=== PATIENT | female | born 1990 | race Caucasian/White ===

== ENCOUNTER 2021-01-19 10:22 | Emergency (ER) | payer BC, SELFPAY ==
[2021-01-19 10:24] VITALS: BP 113/70; PULSE 100; RESP 18; TEMP 36.4; O2SAT 100
--- NOTE | 2021-01-19 11:06 | ED.NEUROSD ---
HPI - Neuro Symptoms/Deficit General Chief Complaint: Neuro Symptoms/Deficit Stated Complaint: R side of face numb Time Seen by Provider: 01/19/21 11:06 History of Present Illness HPI Narrative: Right sided facial numbness and weakness since this morning. Noticed facial asymmetry and had tooth paste running out of the corner of her mouth when she brushed her teeth this morning. She has some sensation in the right face, but it is significantly reduced compared to the left. No other weakness or numbness noted. No difficulties with speech or coordination. No problems with comprehension. She has had an earache on the right side for 2-3 days and was started on Augmentin yesterday. Related Data Allergies Allergy/AdvReac Type Severity Reaction Status Date / Time No Known Allergies Allergy Uncoded 06/08/19 11:00 Review of Systems Review of Systems: All systems reviewed & are unremarkable except as noted in HPI and below Constitutional: Constitutional: Denies chills and Denies fever(s) Eyes: Eyes: Denies no additional eye complaints and Denies change in vision ENT: Denies dizziness Cardiovascular: Cardiovascular: Denies chest pain Respiratory: Respiratory: Denies dyspnea Gastrointestinal: Gastrointestinal: Denies nausea and Denies vomiting Musculoskeletal: Musculoskeletal: Denies back pain Neurologic: Reports as per HPI Exam Const: General: healthy appearing, no acute distress and alert Nutritional Appearance: well nourished Orientation/consciousness: patient oriented x3 HENMT: Mouth: Yes moist mucous membranes Eyes: Pupils: Equal, round and reactive pupils present EOM: EOMs intact bilaterally Neck: Neck: normal visual inspection Resp: Effort & Inspection: normal respiratory effort Auscultation: clear to auscultation bilaterally Cardio: Rate: regular rate Rhythm: regular rhythm Skin: General skin exam: normal color Neuro: General: patient oriented x3, moves all extremities and no focal motor deficits Cognition (Neuro): normal cognition Speech: normal speech Gait exam (Neuro): Normal gait present Motor exam (neuro): 5/5 motor strength present throughout (extremities) Other: Right facial weakness including muscles of the forehead. Right eyelid is able to close completely. Mild tongue deviation. Extrem: General: normal to inspection Psych: Appearance: grossly normal Mental Status: mental status grossly normal Affect: normal affect Attitude: cooperative Thought content: Yes Normal thought content present Course Vital Signs Vital signs: Vital Signs Temperature 36.4 C L 01/19/21 10:24 Pulse Rate 100 06/08/21 10:24 Respiratory Rate 18 01/19/21 10:24 Blood Pressure 113/70 01/19/21 10:24 Pulse Oximetry 100 01/19/21 10:24 Temperature 36.4 C L 01/19/21 10:24 Pulse Rate 100 01/19/21 10:24 Respiratory Rate 18 01/19/21 10:24 Blood Pressure 113/70 01/19/21 10:24 Pulse Oximetry 100 01/19/21 10:24 MDM - Neuro Symptoms/Deficit MDM Narrative Medical decision making narrative: 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 I will start prednisone and acyclovir. Medical Records Attestation: I reviewed the patient's medical records. Discharge Plan Discharge Clinical Impression: Caballero's palsy Patient Disposition: Home, Self-Care Condition: Stable Instructions: Caballero Palsy (ED) Additional Instructions: Patch eye while sleeping if your are not able to close it completely. Prescriptions: New prednisone 20 mg tablet 60 mg PO DAILY 5 Days Qty: 15 RF: 0 acyclovir 800 mg tablet 800 mg PO Q4H 7 Days Qty: 42 RF: 0 Artificial Tears (cmc) 1 % drops 1 drp EACH EYE QID Qty: 15 RF: 0 Follow-up/Referrals: PHYSICIAN,HIM SPECIALIST [Primary Care Provider] - Ronal Erickson MD [Physician] -
[2021-01-19] MEDS: ACYCLOVIR 400 MG TABLET 800 MG PO (11:45)
[2021-01-19] MEDS: predniSONE 20 MG TABLET 60 MG PO (11:45)
== END 2021-01-19 11:47 | disposition home or self-care (01) ==
PROVIDERS: Emergency Provider Emergency Medicine
DX: G51.0 Bell's palsy (principal)
CPT/HCPCS: 99283; A9270; J7512

== ENCOUNTER 2021-07-16 14:21 | Emergency (ER) | payer BC, SELFPAY ==
--- NOTE | 2021-07-16 14:27 | ED.URI ---
HPI - URI/Sore Throat General Chief Complaint: Upper Respiratory Infection Stated Complaint: congestion/reid/cough Time Seen by Provider: 07/16/21 14:27 Source: patient and RN notes reviewed Mode of arrival: ambulatory Limitations: no limitations History of Present Illness HPI Narrative: Sherlyn 30-year-old female patient who ambulated into the [facility]. Patient states on 07/12/2021 she developed a cough sinus congestion. She stated on Monday she started having a fever of 102 at home. Increasing cough, sinus congestion body aches chest and back pain. 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 She has been off since Monday due to symptoms. MD elicited complaint: nasal congestion Related Data Allergies Allergy/AdvReac Type Severity Reaction Status Date / Time codeine Allergy Vomiting Verified 07/16/21 14:26 Review of Systems Review of Systems: CONSTITUTIONAL: Denies body aches, fever, chills, or sweats. EYES: Denies visual changes, redness, or discharge. ENT: Denies rhinorrhea,+ congestion, sore throat, or otalgia. CARDIOVASCULAR: Denies chest pain, palpitations, or edema. RESPIRATORY: + cough denies dyspnea. GASTROINTESTINAL: Denies abdominal pain, nausea, vomiting, or diarrhea. GENITOURINARY: Denies dysuria or hematuria. SKIN: Denies rash, itching, or wounds. MUSCULOSKELETAL: Denies back pain, joint pain, or myalgia. NEUROLOGIC: Denies headache, numbness, tingling, or weakness. PSYCH: Denies depression or anxiety. All systems reviewed & are unremarkable except as noted in HPI and below PMFSH Comments At time of signature, I have reviewed and agree with nursing past medical, surgical, social and family history unless otherwise noted. Please see nursing chart for further information. There is no relevant family history pertinent to the presenting complaint Exam Narrative: GENERAL: Well-appearing, well-nourished, and in no acute distress. HEAD: Normocephalic, atraumatic. EYES: EOMI. No redness or drainage. Conjunctivae normal. ENT: Mucous membranes pink and moist. Nasal membranes are erythematous with clear discharge. TMs normal bilaterally. Posterior pharynx is erythemic with mild edema no exudate .Uvula midline. NECK: Normal AROM. Supple. No lymphadenopathy. CHEST: No respiratory distress. Clear to auscultation; harsh cough noted. MUSCULOSKELETAL: No bony tenderness. EXTREMITIES: Normal range of motion. No edema. SKIN: Warm, dry, no rash. Capillary refill normal. Normal skin turgor. NEURO: No focal deficits. Alert and oriented x3. Gait steady. PSYCH: Normal affect. No signs of depression or anxiety. Course Vital Signs Vital signs: Reviewed MDM - URI/Sore Throat MDM Narrative Medical decision making narrative: COVID-19; patient's rapid COVID-19 test is positive. Patient has been symptomatic since 07/12/2021. Patient does have a past history of asthma. Patient will be treated with prednisone 50 mg x 7 days for the harsh cough. Patient will treat the symptoms with [id number] cold medicine. Patient was educated on going straight to the emergency room for any severe shortness of breath or any other issues. Patient was notified that [facility] will be contacting her regarding her quarantine. Differential Diagnosis Differential diagnosis: Likely upper respiratory infection, sinusitis, viral infection and bronchitis Medical Records Attestation: I reviewed the patient's medical records. Lab Data Attestation: I reviewed the patient's lab results. Critical Care Time Critical Care Time Critical Care Time: No Discharge Plan Discharge Clinical Impression: COVID-19 Patient Disposition: Home, Self-Care Condition: Stable Instructions: Antibiotic Form, COVID-19 (Coronavirus Disease 2019) (ED) Additional Instructions: Increase your fluid intake of water and/or Gatorade May use [id number] cold medicines to treat symptoms. Motrin or T
[2021-07-16 14:29] VITALS: BP 115/77; PULSE 137; RESP 16; TEMP 37.1; O2SAT 100
== END 2021-07-16 15:00 | disposition home or self-care (01) ==
PROVIDERS: Emergency Provider Nurse Practitioner Family
DX: U07.1 COVID-19 (principal)
CPT/HCPCS: 87426; 99213; C9803; G0463